=== PATIENT | male | born 1950 ===

== ENCOUNTER 2018-04-22 12:57 | Inpatient (IN) | payer OTHER ==
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
--- OUTSIDE RECORDS SUMMARY | 2018-04-24 15:41 | XMS REPORT ---
:1950 [facility] Address [address] [place] [address] [place] [id number] Care Team Providers Name Role Phone Unavailable Unavailable Unavailable Problems This patient has no known problems. Allergies, Adverse Reactions, Alerts This patient has no known allergies or adverse reactions. Medications This patient has no known medications.
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
[2018-04-24] MEDS: APIXABAN 2.5 MG TABLET PO SCH (20:00)
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
[2018-04-25 07:02] LABS: Absolute Lymphocytes (CBC) 2.5 K/uL (0.7-4.9); Absolute Monocytes 1.4 K/uL (0.1-1.3); Absolute Neutrophil 9.6 K/uL (1.8-8.0); Basophils % 0.3 % (0-1.3); Eosinophils % 1.4 % (0-4.4); Hematocrit 29.1 % (39.6-49.0); Lymphocytes % 18.4 % (15.3-44.8); Monocytes % 9.9 % (3.3-12.3); RBC Red Blood Cell Count 3.45 M/uL (4.33-5.43)
[2018-04-25 07:11] LABS: Albumin 2.5 g/dL (3.4-5.0); Magnesium 2.6 mg/dL (1.8-2.4); Potassium 4.4 mmol/L (3.5-5.1); Prealbumin 9.1 mg/dL (20-40)
[2018-04-25] MEDS: FINASTERIDE 5 MG TAB PO SCH (08:55)
[2018-04-25] MEDS: ASPIRIN 81 MG CHEWABLE TABLET PO SCH (08:56)
[2018-04-25] MEDS: APIXABAN 2.5 MG TABLET PO SCH ×2 (08:56→20:48)
[2018-04-25] MEDS: DOCUSATE NA 100 MG CAP PO SCH (08:56)
[2018-04-25] MEDS: AMLODIPINE 10 MG TAB PO SCH (08:56)
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
[2018-04-25] MEDS: HYDROCODONE/APAP 5/325 MG TAB PO PRN (10:30)
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
[2018-04-25] MEDS: MELATONIN 3 MG TABLET PO PRN (20:48)
[2018-04-25] MEDS: PROMOD 30 ML DOSE PO SCH (20:48)
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
[2018-04-26] MEDS: ASPIRIN 81 MG CHEWABLE TABLET PO SCH (08:51)
[2018-04-26] MEDS: FE SULF/FA/VIT B COMP & C TAB PO SCH (08:51)
[2018-04-26] MEDS: APIXABAN 2.5 MG TABLET PO SCH ×2 (08:51→20:39)
[2018-04-26] MEDS: FERROUS SULFATE 325 MG TAB PO SCH (08:51)
[2018-04-26] MEDS: DOCUSATE NA 100 MG CAP PO SCH (08:51)
[2018-04-26] MEDS: AMLODIPINE 10 MG TAB PO SCH (08:52)
[2018-04-26] MEDS: FINASTERIDE 5 MG TAB PO SCH (08:52)
[2018-04-26] MEDS: HYDROCODONE/APAP 5/325 MG TAB PO PRN ×2 (08:52→12:26)
[2018-04-26] MEDS: PROMOD 30 ML DOSE PO SCH ×2 (08:53→20:39)
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
[2018-04-26] MEDS: MELATONIN 3 MG TABLET PO PRN (22:16)
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
[2018-04-27] MEDS: ASPIRIN 81 MG CHEWABLE TABLET PO SCH (08:58)
[2018-04-27] MEDS: APIXABAN 2.5 MG TABLET PO SCH ×2 (08:58→19:00)
[2018-04-27] MEDS: DOCUSATE NA 100 MG CAP PO SCH (08:58)
[2018-04-27] MEDS: AMLODIPINE 10 MG TAB PO SCH (08:58)
[2018-04-27] MEDS: FINASTERIDE 5 MG TAB PO SCH (08:58)
[2018-04-27] MEDS: FE SULF/FA/VIT B COMP & C TAB PO SCH (08:58)
[2018-04-27] MEDS: HYDROCODONE/APAP 5/325 MG TAB PO PRN (08:58)
[2018-04-27] MEDS: FERROUS SULFATE 325 MG TAB PO SCH (08:58)
[2018-04-27] MEDS: PROMOD 30 ML DOSE PO SCH ×2 (08:59→19:00)
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
[2018-04-28] MEDS ORDERED: HOME MED 1 EA UNK PO SCH (08:00)
[2018-04-28] MEDS: PROMOD 30 ML DOSE PO SCH ×2 (08:00→21:25)
[2018-04-28] MEDS: FERROUS SULFATE 325 MG TAB PO SCH (08:01)
[2018-04-28] MEDS: APIXABAN 2.5 MG TABLET PO SCH ×2 (08:01→21:25)
[2018-04-28] MEDS: FE SULF/FA/VIT B COMP & C TAB PO SCH (08:01)
[2018-04-28] MEDS: FINASTERIDE 5 MG TAB PO SCH (08:01)
[2018-04-28] MEDS: DOCUSATE NA 100 MG CAP PO SCH (08:01)
[2018-04-28] MEDS: ASPIRIN 81 MG CHEWABLE TABLET PO SCH (08:01)
[2018-04-28] MEDS: AMLODIPINE 10 MG TAB PO SCH (08:01)
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
[2018-04-28 15:39] LABS: Absolute Lymphocytes (CBC) 2.1 K/uL (0.7-4.9); Absolute Monocytes 1.2 K/uL (0.1-1.3); Absolute Neutrophil 8.4 K/uL (1.8-8.0); Basophils % 0.3 % (0-1.3); Hematocrit 31.4 % (39.6-49.0); Lymphocytes % 17.7 % (15.3-44.8); MPV 8.6 fL (7.6-11.3); Monocytes % 10.3 % (3.3-12.3); RBC Red Blood Cell Count 3.63 M/uL (4.33-5.43)
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
[2018-04-28] MEDS: NUEDEXTA 20-10 MG CAPSULE PO SCH (16:34)
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
[2018-04-29] MEDS: FINASTERIDE 5 MG TAB PO SCH (07:33)
[2018-04-29] MEDS: FE SULF/FA/VIT B COMP & C TAB PO SCH (07:33)
[2018-04-29] MEDS: HYDROCODONE/APAP 5/325 MG TAB PO PRN (07:33)
[2018-04-29] MEDS: ASPIRIN 81 MG CHEWABLE TABLET PO SCH (07:33)
[2018-04-29] MEDS: APIXABAN 2.5 MG TABLET PO SCH ×2 (07:33→21:15)
[2018-04-29] MEDS: DOCUSATE NA 100 MG CAP PO SCH (07:33)
[2018-04-29] MEDS: FERROUS SULFATE 325 MG TAB PO SCH (07:33)
[2018-04-29] MEDS: AMLODIPINE 10 MG TAB PO SCH (07:35)
[2018-04-29] MEDS: PROMOD 30 ML DOSE PO SCH ×2 (07:36→21:14)
[2018-04-29] MEDS: NUEDEXTA 20-10 MG CAPSULE PO SCH (17:19)
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
[2018-04-29] MEDS: MELATONIN 3 MG TABLET PO PRN (21:15)
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
[2018-04-30] MEDS: PROMOD 30 ML DOSE PO SCH ×2 (08:00→19:11)
[2018-04-30] MEDS: DOCUSATE NA 100 MG CAP PO SCH (08:16)
[2018-04-30] MEDS: ASPIRIN 81 MG CHEWABLE TABLET PO SCH (08:16)
[2018-04-30] MEDS: FINASTERIDE 5 MG TAB PO SCH (08:16)
[2018-04-30] MEDS: APIXABAN 2.5 MG TABLET PO SCH ×2 (08:16→19:11)
[2018-04-30] MEDS: FERROUS SULFATE 325 MG TAB PO SCH (08:16)
[2018-04-30] MEDS: FE SULF/FA/VIT B COMP & C TAB PO SCH (08:16)
[2018-04-30] MEDS: AMLODIPINE 10 MG TAB PO SCH (08:16)
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
[2018-04-30] MEDS: NUEDEXTA 20-10 MG CAPSULE PO SCH (17:04)
[2018-04-30] MEDS: MELATONIN 3 MG TABLET PO PRN (21:11)
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
[2018-05-01 06:02] LABS: Absolute Lymphocytes (CBC) 2.9 K/uL (0.7-4.9); Absolute Monocytes 1.1 K/uL (0.1-1.3); Absolute Neutrophil 5.6 K/uL (1.8-8.0); Basophils % 0.8 % (0-1.3); Eosinophils % 1.7 % (0-4.4); Lymphocytes % 29.1 % (15.3-44.8); MPV 8.1 fL (7.6-11.3); Monocytes % 11.6 % (3.3-12.3); RBC Red Blood Cell Count 3.82 M/uL (4.33-5.43)
[2018-05-01 06:24] LABS: Albumin 2.9 g/dL (3.4-5.0); Potassium 4.2 mmol/L (3.5-5.1); Prealbumin 18.3 mg/dL (20-40)
[2018-05-01] MEDS: ASPIRIN 81 MG CHEWABLE TABLET PO SCH (10:00)
[2018-05-01] MEDS: FINASTERIDE 5 MG TAB PO SCH (10:00)
[2018-05-01] MEDS: DOCUSATE NA 100 MG CAP PO SCH (10:00)
[2018-05-01] MEDS: FE SULF/FA/VIT B COMP & C TAB PO SCH (10:00)
[2018-05-01] MEDS: PROMOD 30 ML DOSE PO SCH ×2 (10:00→19:20)
[2018-05-01] MEDS: APIXABAN 2.5 MG TABLET PO SCH ×2 (10:00→19:20)
[2018-05-01] MEDS: AMLODIPINE 10 MG TAB PO SCH (10:00)
[2018-05-01] MEDS: FERROUS SULFATE 325 MG TAB PO SCH (10:00)
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
[2018-05-01] MEDS: NUEDEXTA 20-10 MG CAPSULE PO SCH (17:31)
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
[2018-05-01] MEDS: MELATONIN 3 MG TABLET PO PRN (22:47)
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
[2018-05-02] MEDS: PROMOD 30 ML DOSE PO SCH ×2 (08:00→20:43)
[2018-05-02] MEDS: FERROUS SULFATE 325 MG TAB PO SCH (09:24)
[2018-05-02] MEDS: FINASTERIDE 5 MG TAB PO SCH (09:24)
[2018-05-02] MEDS: ASPIRIN 81 MG CHEWABLE TABLET PO SCH (09:24)
[2018-05-02] MEDS: FE SULF/FA/VIT B COMP & C TAB PO SCH (09:24)
[2018-05-02] MEDS: APIXABAN 2.5 MG TABLET PO SCH ×2 (09:24→20:43)
[2018-05-02] MEDS: AMLODIPINE 10 MG TAB PO SCH (09:25)
[2018-05-02] MEDS: DOCUSATE NA 100 MG CAP PO SCH (09:25)
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
[2018-05-02] MEDS: NUEDEXTA 20-10 MG CAPSULE PO SCH (17:00)
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
[2018-05-03] MEDS: AMLODIPINE 10 MG TAB PO SCH (09:10)
[2018-05-03] MEDS: FERROUS SULFATE 325 MG TAB PO SCH (09:10)
[2018-05-03] MEDS: DOCUSATE NA 100 MG CAP PO SCH (09:10)
[2018-05-03] MEDS: FE SULF/FA/VIT B COMP & C TAB PO SCH (09:10)
[2018-05-03] MEDS: ASPIRIN 81 MG CHEWABLE TABLET PO SCH (09:11)
[2018-05-03] MEDS: FINASTERIDE 5 MG TAB PO SCH (09:11)
[2018-05-03] MEDS: PROMOD 30 ML DOSE PO SCH ×2 (09:11→20:29)
[2018-05-03] MEDS: APIXABAN 2.5 MG TABLET PO SCH ×2 (09:11→20:29)
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
[2018-05-03] MEDS: NUEDEXTA 20-10 MG CAPSULE PO SCH (17:22)
[2018-05-03] MEDS: MELATONIN 3 MG TABLET PO PRN (20:29)
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
[2018-05-04] MEDS: FE SULF/FA/VIT B COMP & C TAB PO SCH (09:25)
[2018-05-04] MEDS: FERROUS SULFATE 325 MG TAB PO SCH (09:26)
[2018-05-04] MEDS: PROMOD 30 ML DOSE PO SCH ×2 (09:26→19:07)
[2018-05-04] MEDS: APIXABAN 2.5 MG TABLET PO SCH ×2 (09:26→19:07)
[2018-05-04] MEDS: AMLODIPINE 10 MG TAB PO SCH (09:26)
[2018-05-04] MEDS: ASPIRIN 81 MG CHEWABLE TABLET PO SCH (09:26)
[2018-05-04] MEDS: FINASTERIDE 5 MG TAB PO SCH (09:26)
[2018-05-04] MEDS: DOCUSATE NA 100 MG CAP PO SCH (09:26)
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
[2018-05-04] MEDS: NUEDEXTA 20-10 MG CAPSULE PO SCH (16:50)
[2018-05-04] MEDS: DOCUSATE NA/SENNA CONC 1 TAB PO PRN (19:07)
[2018-05-04] MEDS: MELATONIN 3 MG TABLET PO PRN (19:07)
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
[2018-05-05] MEDS: AMLODIPINE 10 MG TAB PO SCH (08:57)
[2018-05-05] MEDS: HYDROCODONE/APAP 5/325 MG TAB PO PRN (08:57)
[2018-05-05] MEDS: APIXABAN 2.5 MG TABLET PO SCH ×2 (08:57→19:00)
[2018-05-05] MEDS: DOCUSATE NA 100 MG CAP PO SCH (08:57)
[2018-05-05] MEDS: FERROUS SULFATE 325 MG TAB PO SCH (08:57)
[2018-05-05] MEDS: FINASTERIDE 5 MG TAB PO SCH (08:57)
[2018-05-05] MEDS: FE SULF/FA/VIT B COMP & C TAB PO SCH (08:57)
[2018-05-05] MEDS: ASPIRIN 81 MG CHEWABLE TABLET PO SCH (08:57)
[2018-05-05] MEDS: PROMOD 30 ML DOSE PO SCH ×2 (08:58→19:00)
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
[2018-05-05] MEDS ORDERED: POLYETHYL GLY 3350 17 GM/DOSE PO PRN (13:54)
[2018-05-05] MEDS: NUEDEXTA 20-10 MG CAPSULE PO SCH (16:29)
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
[2018-05-05] MEDS: DOCUSATE NA/SENNA CONC 1 TAB PO PRN (19:00)
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
[2018-05-06] MEDS: PROMOD 30 ML DOSE PO SCH ×2 (08:38→19:45)
[2018-05-06] MEDS: APIXABAN 2.5 MG TABLET PO SCH ×2 (08:38→19:45)
[2018-05-06] MEDS: FERROUS SULFATE 325 MG TAB PO SCH (08:38)
[2018-05-06] MEDS: HYDROCODONE/APAP 5/325 MG TAB PO PRN (08:38)
[2018-05-06] MEDS: AMLODIPINE 10 MG TAB PO SCH (08:38)
[2018-05-06] MEDS: DOCUSATE NA 100 MG CAP PO SCH (08:38)
[2018-05-06] MEDS: FINASTERIDE 5 MG TAB PO SCH (08:38)
[2018-05-06] MEDS: ASPIRIN 81 MG CHEWABLE TABLET PO SCH (08:38)
[2018-05-06] MEDS: FE SULF/FA/VIT B COMP & C TAB PO SCH (08:38)
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
[2018-05-06] MEDS: NUEDEXTA 20-10 MG CAPSULE PO SCH (16:37)
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
[2018-05-06] MEDS: DOCUSATE NA/SENNA CONC 1 TAB PO PRN (19:45)
[2018-05-06] MEDS ORDERED: BISACODYL 10 MG RECTAL SUPP PR PRN (22:39)
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
[2018-05-07] MEDS: AMLODIPINE 10 MG TAB PO SCH (09:29)
[2018-05-07] MEDS: FERROUS SULFATE 325 MG TAB PO SCH (09:29)
[2018-05-07] MEDS: DOCUSATE NA 100 MG CAP PO SCH (09:29)
[2018-05-07] MEDS: FINASTERIDE 5 MG TAB PO SCH (09:29)
[2018-05-07] MEDS: APIXABAN 2.5 MG TABLET PO SCH ×2 (09:30→20:48)
[2018-05-07] MEDS: ASPIRIN 81 MG CHEWABLE TABLET PO SCH (09:30)
[2018-05-07] MEDS: PROMOD 30 ML DOSE PO SCH ×2 (09:30→20:49)
[2018-05-07] MEDS: FE SULF/FA/VIT B COMP & C TAB PO SCH (09:30)
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
[2018-05-07] MEDS: NUEDEXTA 20-10 MG CAPSULE PO SCH (17:21)
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
[2018-05-07] MEDS ORDERED: DOCUSATE NA/SENNA CONC 1 TAB PO SCH (21:00)
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
[2018-05-08 06:19] LABS: Absolute Lymphocytes (CBC) 3.2 K/uL (0.7-4.9); Absolute Monocytes 0.8 K/uL (0.1-1.3); Absolute Neutrophil 4.8 K/uL (1.8-8.0); Basophils % 0.7 % (0-1.3); Hematocrit 34.7 % (39.6-49.0); Lymphocytes % 34.6 % (15.3-44.8); Monocytes % 8.6 % (3.3-12.3); RBC Red Blood Cell Count 4.04 M/uL (4.33-5.43)
[2018-05-08 06:32] LABS: Albumin 3.2 g/dL (3.4-5.0); Potassium 4.4 mmol/L (3.5-5.1); Prealbumin 24.2 mg/dL (20-40)
[2018-05-08] MEDS: PROMOD 30 ML DOSE PO SCH (08:00)
[2018-05-08] MEDS: FE SULF/FA/VIT B COMP & C TAB PO SCH (08:21)
[2018-05-08] MEDS: FINASTERIDE 5 MG TAB PO SCH (08:21)
[2018-05-08] MEDS: FERROUS SULFATE 325 MG TAB PO SCH (08:21)
[2018-05-08] MEDS: ASPIRIN 81 MG CHEWABLE TABLET PO SCH (08:21)
[2018-05-08] MEDS: APIXABAN 2.5 MG TABLET PO SCH (08:21)
[2018-05-08] MEDS: AMLODIPINE 10 MG TAB PO SCH (08:22)
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
== END 2018-05-08 13:40 | DRG 950 ==
LOC: 5TH 04-24 15:36
PROVIDERS: ADMIT Psychiatry & Neurology Neurology with Special Qualifications in Child Neurology; ATTEND Psychiatry & Neurology Neurology with Special Qualifications in Child Neurology
DX: T20.20XD Burn of second degree of head, face, and neck, unspecified site, subsequent encounter (principal); T23.202D Burn of second degree of left hand, unspecified site, subsequent encounter; R53.81 Other malaise
CPT/HCPCS: 36415; 80048; 82040; 83735; 84134; 85025; 92507; 92523; 92610; 97110; 97112; 97116; 97150; 97162; 97167; 97530